=== PATIENT | female | born 1955 | race Caucasian/White ===

== ENCOUNTER 2021-10-02 13:21 | Day surgery (SDCO) | payer OTHER, MEDICARE ==
[~2021-10-02] VITALS: Ht 157.5 cm; Wt 73.6 kg
[~2021-10-02 13:21] MED LIST: ALBUTEROL2.5 MG/3 M NEB; ASPIR 8181 MG PO; BUSPIRONE HCL7.5 MG PO; CLARITIN10 MG PO; DULERA 200 MCG8.8 GM INH; DUONEB 2.5-0.5M1 AMP NEB; FLONASE ALLER15.8 ML; HCTZ12.5 MG PO; HCTZ25 MG PO; HEPARIN 3010 UNIT/1 IV; LEVAQUIN500 MG PO; METRONIDAZOLE500 MG PO; MYLICON80 MG PO; NEBULIZER UNIT NEB; NORCO 5-325 TA1 EACH PO; OMEPRAZOLE40 MG PO; ONDANSETRON ODT4 MG PO/SL; POTASSIUM CHLO10 ME1 PO; POTASSIUM CHLO20 ME2 PO; PULMICORT0.5 MG/2 M NEB; SINGULAIR10 MG PO; THEOPHYLLINE400 MG PO; VOLTAREN **OUT75 MG PO; ZYRTEC-D TABLE1 EACH PO
[2021-10-02 14:49] LABS: BILIRUBIN NEGATIVE (NEGATIVE); BLOOD TRACE-INTACT Ery/uL (NEGATIVE); CLARITY CLEAR (CLEAR); COLOR YELLOW (YELLOW); GLUCOSE (U) NORMAL (NORMAL); LEUKOCYTES NEGATIVE Leu/uL (NEGATIVE); NITRITE NEGATIVE (NEGATIVE); PROTEIN NEGATIVE (NEGATIVE); SPECIFIC GRAVITY 1.025 (1.001-1.030); UROBILINOGEN 0.2 mg/dL (0.2-1.0)
[2021-10-02 14:56] LABS: AMORPHOUS PHOSPHATE CRYSTALS LARGE; BACTERIA TRACE
[2021-10-02 15:29] LABS: BASOPHIL 0.6 % (0-2); EOSINOPHIL 0.8 % (0-7); HCT 43.2 % (37.0-47.0); HGB 14.9 g/dl (12.5-16.0); LYMPHOCYTE 16.6 % (15-48); MCH 31.6 pg (25.0-31.0); MCHC 34.5 g/dL (32.0-36.0); MCV 91.7 fL (78.0-100.0); MONOCYTE 6.6 % (0-12); MPV 7.8 fL (6.0-9.5); NRBC 0; PLT 435 K/uL (150-400); RBC 4.71 M/uL (4.20-5.40); WBC 14.2 K/uL (4.0-10.5)
[2021-10-02 15:53] LABS: ALBUMIN 3.8 g/dL (3.4-5.0); BILIRUBIN - TOTAL 0.6 mg/dL (0.2-1.0); BUN/CREAT RATIO (CALC) 9.8 RATIO; CREATININE 0.61 mg/dL (0.51-0.95); POTASSIUM 2.8 mmol/L (3.5-5.1); TOTAL PROTEIN 6.8 g/dL (6.4-8.2)
[2021-10-02] MEDS ORDERED: PEPCID AC20 MG PO (22:51)
[2021-10-02] MEDS ORDERED: ZYRTEC-D TABLE1 EACH PO (22:58)
[2021-10-02] MEDS ORDERED: LEVSIN-SL0.125 MG SL (22:58)
[2021-10-03 00:21] LABS: ALBUMIN 3.5 g/dL (3.4-5.0); BILIRUBIN - TOTAL 0.7 mg/dL (0.2-1.0); BUN/CREAT RATIO (CALC) 14.1 RATIO; CREATININE 0.64 mg/dL (0.51-0.95); GLOBULIN (CALCULATION) 2.8 g/dL; POTASSIUM 3.6 mmol/L (3.5-5.1); TOTAL PROTEIN 6.3 g/dL (6.4-8.2)
[2021-10-03 07:02] LABS: BASOPHIL 0.9 % (0-2); HCT 37.3 % (37.0-47.0); HGB 12.5 g/dl (12.5-16.0); LYMPHOCYTE 20.4 % (15-48); MCHC 33.5 g/dL (32.0-36.0); MCV 92.6 fL (78.0-100.0); MONOCYTE 6.9 % (0-12); MPV 8.1 fL (6.0-9.5); NEUTROPHIL 69.3 % (41-80); NRBC 0; PLT 429 K/uL (150-400); RBC 4.03 M/uL (4.20-5.40); RDW 13.1 % (11.5-14.0); WBC 10.3 K/uL (4.0-10.5)
[2021-10-03 07:19] LABS: BUN/CREAT RATIO (CALC) 13.8 RATIO; CREATININE 0.58 mg/dL (0.51-0.95); POTASSIUM 3.3 mmol/L (3.5-5.1)
[2021-10-03] MEDS ORDERED: PYRIDIUM200 MG PO (10:51)
[2021-10-03] MEDS ORDERED: NORCO 5-325 TA1 EACH PO (10:51)
[2021-10-03] MEDS ORDERED: CEFDINIR300 MG PO (10:51)
--- NOTE | 2021-10-03 11:27 | NUR ---
Pt triggered for nutrition consult d/t MST score of 4; visiting with patient nausea and decreased appetite associated with acute illness; no wt loss. patient to be d/c'd this date. brief discussion re: PMH dx of GERD. patient aware of food choices - plans to have EGD next month and further diagnostic testing. declined handouts; no nutritional risk.
== END 2021-10-03 11:37 | disposition home or self-care (01) ==
LOC: FER 13:21 → FMS 20:42
PROVIDERS: Emergency Medicine; Nurse Practitioner Acute Care; Physician Assistant; ADMIT Internal Medicine
DX: R10.30 Lower abdominal pain, unspecified (principal); R30.0 Dysuria; R31.9 Hematuria, unspecified; R39.15 Urgency of urination; R39.89 Other symptoms and signs involving the genitourinary system; D72.829 Elevated white blood cell count, unspecified; E87.6 Hypokalemia; I10 Essential (primary) hypertension; K21.9 Gastro-esophageal reflux disease without esophagitis; Z88.6 Allergy status to analgesic agent; Z88.1 Allergy status to other antibiotic agents; Z88.2 Allergy status to sulfonamides
CPT/HCPCS: 36415; 80048; 80053; 81001; 83605; 85025; 87040; 87088; 93005; G0378; J0692; J1650; J1885; J2270; J2405; J3480; J7030; J7040; J7120